=== PATIENT | female | born 1980 | race African-American/Black ===

== ENCOUNTER 2016-07-31 00:15 | Inpatient (IN) | payer MEDICAID ==
[2016-07-31] VITALS (14 sets, daily range): BP systolic 92–127; RESP 16–20; TEMP 97.5–99.1; Ht 172.7 cm; Wt 120.7 kg
[~2016-07-31] VITALS: Ht 172.7 cm; Wt 120.7 kg
[2016-07-31] MEDS ORDERED: CEFAZOLIN 3,000 MG in SODIUM CHLORIDE 0.9% 100 ML IV ONE (01:35)
[2016-07-31] MEDS ORDERED: FAMOTIDINE 20 MG INJ IV ONE ×2 (01:35→05:00)
[2016-07-31] MEDS ORDERED: LIDOCAINE 1% BUFFERED 1 ML SYR INTRADERM PRN (01:35)
[2016-07-31] MEDS ORDERED: METOCLOPRAMIDE 10 MG/2 ML VIAL IV PUSH ONE ×2 (01:35→05:00)
[2016-07-31] MEDS ORDERED: LACT RINGERS 1,000 ML IV SCH (01:35)
[2016-07-31] MEDS ORDERED: Flu Vaccine Quadrivalent 60 MCG/0.5 ML IM.VACC ONE (01:55)
[2016-07-31] MEDS ORDERED: PNEUMO VAC 25 MCG/0.5 ML VL IM.VACC ONE (02:25)
[2016-07-31] MEDS ORDERED: DEXTROSE 5% 1,000 ML IV ONE (04:20)
[2016-07-31] MEDS ORDERED: BUTORPHANOL 2 MG/ML VIAL IV PRN (07:50)
[2016-07-31] MEDS ORDERED: DIPHENHYDRAMINE 50 MG/ML VIAL IV PRN (07:50)
[2016-07-31] MEDS ORDERED: OXYCODONE 5 MG TAB PO PRN (07:50)
[2016-07-31] MEDS ORDERED: NALOXONE 0.4 MG/ML AMP IV PRN (07:50)
[2016-07-31] MEDS ORDERED: MORPHINE 2 MG/ML SYR IV PRN ×2 (07:50)
[2016-07-31] MEDS ORDERED: ONDANSETRON 4 MG VIAL IV PRN ×3 (07:50→09:10)
[2016-07-31] MEDS ORDERED: SALINE FLUSH 10 ML FLUSH PRN ×2 (07:50→09:10)
[2016-07-31] MEDS ORDERED: MORPHINE 4 MG/ML SYR IV PRN ×2 (07:50)
[2016-07-31] MEDS ORDERED: DILAUDID 1 MG/ML AMP IV PRN (07:50)
[2016-07-31] MEDS ORDERED: MEPERIDINE 25 MG/ML IV PRN (07:50)
[2016-07-31] MEDS: SALINE FLUSH 10 ML FLUSH SCH ×2 (08:00→20:00)
[2016-07-31] MEDS ORDERED: TDaP 0.5 ML VIAL IM.VACC ONE (09:10)
[2016-07-31] MEDS ORDERED: OXYTOCIN 15 UNITS/250 ML NS 250 ML IV SCH (09:10)
[2016-07-31] MEDS ORDERED: MEASLES,MUMPS,RUBELLA VAC SUBQ.VACC ONE (09:10)
[2016-07-31] MEDS ORDERED: LEVEMIR INSULIN SUBQ PRN (09:10)
[2016-07-31] MEDS ORDERED: MAG HYDROX 30 ML UDC PO PRN (09:10)
[2016-07-31] MEDS: PROMETHAZINE 25 MG/ML VIAL IV PRN ×2 (10:31→14:25)
[2016-07-31] MEDS: LACT RINGERS 1,000 ML IV SCH ×3 (10:33→22:16)
[2016-07-31] MEDS: KETOROLAC 30 MG/ML VIAL IV SCH ×2 (11:39→18:09)
[2016-07-31] MEDS ORDERED: GLUCAGON 1 MG VIAL IM PRN (11:55)
[2016-07-31] MEDS ORDERED: DEXTROSE 50% SYRINGE 50 ML IV PRN (11:55)
[2016-07-31] MEDS ORDERED: METFORMIN 500 MG TAB PO SCH (21:00)
[2016-07-31] MEDS: METFORMIN 500 MG TAB PO SCH (22:16)
[2016-08-01] VITALS (9 sets, daily range): BP systolic 93–123; RESP 16–18; TEMP 98–98.3
[2016-08-01] MEDS: KETOROLAC 30 MG/ML VIAL IV SCH ×2 (00:03→06:01)
[2016-08-01] MEDS ORDERED: SODIUM CHLORIDE 0.9% FLUSH BAG 500 ML IV SCH (06:00)
[2016-08-01] MEDS: DOCUSATE SOD 100 MG CAP PO SCH (08:15)
[2016-08-01] MEDS: SALINE FLUSH 10 ML FLUSH SCH (09:37)
[2016-08-01] MEDS: OXYCODONE/APAP 5/325 TAB PO PRN ×2 (10:25→19:41)
[2016-08-01] MEDS: Ibuprofen 600 MG TAB PO PRN ×2 (10:26→18:08)
[2016-08-01] MEDS: METFORMIN 500 MG TAB PO SCH (21:06)
[2016-08-02] MEDS: OXYCODONE/APAP 5/325 TAB PO PRN ×3 (04:10→09:00)
[2016-08-02 05:51] VITALS: BP_SYST 101; RESP 20; TEMP 98.1
[2016-08-02] MEDS: Ibuprofen 600 MG TAB PO PRN (08:31)
[2016-08-02] MEDS: DOCUSATE SOD 100 MG CAP PO SCH (08:32)
[2016-08-02 09:11] VITALS: BP_SYST 111; TEMP 97.6
[2016-08-02 09:12] VITALS: RESP 18
== END 2016-08-02 13:15 | disposition home or self-care (01) | DRG 765 ==
LOC: LDOP 00:15 → LD 01:20 → OB 10:35
PROVIDERS: ADMIT Obstetrics & Gynecology; ATTEND Obstetrics & Gynecology
PROC: 10D00Z1 Extraction of Products of Conception, Low, Open Approach (ICD-10-PCS; principal; 2016-07-31)
PROC: 0UT50ZZ Resection of Right Fallopian Tube, Open Approach (ICD-10-PCS; 2016-07-31)
DX: O65.5 Obstructed labor due to abnormality of maternal pelvic organs (principal); O24.12 Pre-existing type 2 diabetes mellitus, in childbirth; O34.211 Maternal care for low transverse scar from previous cesarean delivery; N85.8 Other specified noninflammatory disorders of uterus; E11.9 Type 2 diabetes mellitus without complications; O99.214 Obesity complicating childbirth; Z3A.38 38 weeks gestation of pregnancy; Z37.0 Single live birth; O42.92 Full-term premature rupture of membranes, unspecified as to length of time between rupture and onset of labor; Z79.4 Long term (current) use of insulin; Z90.79 Acquired absence of other genital organ(s)
CPT/HCPCS: 80053; 81002; 82803; 82947; 84112; 85025; 86850; 86900; 86901; 88302; 90471; 90732